=== PATIENT | female | born 2005 | race Caucasian/White ===

== ENCOUNTER 2023-06-14 09:05 | Day surgery (SDC) | payer MEDICAID ==
[~2023-06-14] VITALS: Ht 157.5 cm; Wt 63.2 kg
[2023-06-14 09:40] LABS: HCG,QUAL RESULT NEGATIVE (NEGATIVE)
[2023-06-14 09:49] VITALS: O2SAT 99
[2023-06-14] MEDS ORDERED: PROPOFOL 200MG/ 20ML VIAL (DIPRIVAN) IV ONE (10:43)
[2023-06-14] MEDS ORDERED: ONDANSETRON HCL 4 MG/2 ML VIAL ONE (10:43)
[2023-06-14] MEDS ORDERED: MIDAZOLAM HCL 5 MG/5 ML VIAL ONE (10:43)
[2023-06-14] MEDS ORDERED: DESFLURANE 15 MIN GAS INH ONE (10:43)
[2023-06-14] MEDS ORDERED: MUPIROCIN 2% TOPICAL OINTMENT 22 GM ONE (10:43)
[2023-06-14] MEDS ORDERED: fentaNYL CITRATE 250 MCG/5 ML AMP ONE (10:43)
[2023-06-14] MEDS ORDERED: LIDOCAINE/EPI 1% 1:100000 20 ML VIAL ONE (10:43)
[2023-06-14] MEDS ORDERED: SUGAMMADEX SODIUM 200 MG/2 ML VIAL IV ONE (10:43)
[2023-06-14] MEDS ORDERED: LIDOCAINE 2%, 20 ML MDV ONE (10:43)
[2023-06-14] MEDS ORDERED: LR 1,000 ML IV.SOLN IV ONE (10:43)
[2023-06-14] MEDS ORDERED: DEXAMETHASONE SOD PHOSPHATE 4 MG/ML VIAL ONE (10:43)
[2023-06-14] MEDS ORDERED: NS IRRIG SOLN 1000 ML IR ONE (10:43)
[2023-06-14] MEDS ORDERED: NS 1000 ML IV.SOLN IV ONE (10:43)
[2023-06-14] MEDS ORDERED: WATER FOR IRRIGATION,STERILE 1,000 ML IRRIG.SOLN IR ONE (10:43)
[2023-06-14] MEDS ORDERED: ROCURONIUM BROMIDE 10 MG/ML (ZEMURON) ONE (10:43)
[2023-06-14] MEDS ORDERED: ACETAMINOPHEN I.V. 1000 MG 100 ML IV ONE (10:44)
[2023-06-14] MEDS ORDERED: HYDROmorphone 1 MG/ML INJ. CARTRIDGE IVP PRN ×2 (11:30)
[2023-06-14] MEDS ORDERED: LR 1,000 ML IV SCH (11:30)
[2023-06-14] MEDS ORDERED: LABETALOL 100 MG/ 20ML VIAL IVP PRN (11:30)
[2023-06-14] MEDS ORDERED: METOCLOPRAMIDE HCL 10 MG/2 ML VIAL IVP PRN (11:30)
[2023-06-14] MEDS ORDERED: MEPERIDINE HCL/PF 25 MG/ML DISP.SYRIN IVP PRN (11:30)
[2023-06-14] MEDS ORDERED: hydrALAZINE HCL 20 MG/ML VIAL IVP PRN (11:30)
[2023-06-14 16:41] VITALS: BP_SYST 122; PULSE 63; RESP 20
== END 2023-06-14 16:55 | disposition home or self-care (01) ==
LOC: SDS 09:05 → SMU 09:07 → SDS 16:55
PROVIDERS: ATTEND Otolaryngology
DX: J34.2 Deviated nasal septum (principal); J34.3 Hypertrophy of nasal turbinates; J34.89 Other specified disorders of nose and nasal sinuses; J45.909 Unspecified asthma, uncomplicated; D38.5 Neoplasm of uncertain behavior of other respiratory organs; Z88.1 Allergy status to other antibiotic agents
CPT/HCPCS: 30520; 30140; 84703; 88304; 88311; J3490; J1100; J2001; J2250; J2405; J2704; J3010; J7120; J7030; J0131; 88305